=== PATIENT | male | born 1960 | race Two or more races ===

== ENCOUNTER → 2020-01-08 | Outpatient (CLI) | payer BC ==
[~2020-01-08] MED LIST: IBUP200C8 PO; MULT-658 PO; PRED5DRO20 EACHEYE
[2020-01-08 16:42] LABS: BASOPHILS # (AUTO) 0.01 x10^3/uL (0-0.1); BASOPHILS % (AUTO) 0 % (0-1); EOSINOPHILS # (AUTO) 0.05 x10^3/uL (0-0.4); EOSINOPHILS % (AUTO) 1 % (1-7); LYMPHOCYTES # (AUTO) 1.02 x10^3/uL (1-3.4); LYMPHOCYTES % (AUTO) 15 % (22-44); MD NO; MEAN CORPUSCULAR HEMOGLOBIN 30.1 pg (27.5-34.5); MEAN CORPUSCULAR HGB CONC 33.9 g/dL (33.2-36.2); MEAN CORPUSCULAR VOLUME 88.9 fL (81-97); MEAN PLATELET VOLUME 7.9 fL (7.4-10.4); MONOCYTES # (AUTO) 0.43 x10^3/uL (0.2-0.8); MONOCYTES % (AUTO) 7 % (2-9); NEUTROPHILS % (AUTO) 77 % (42-75); PLATELET COUNT 343 x10^3/uL (130-400); RED BLOOD COUNT 5.12 x10^6/uL (4.38-5.82); RED CELL DISTRIBUTION WIDTH 13.4 % (9.4-14.8)
[2020-01-08 16:47] LABS: ALANINE AMINOTRANSFERASE 21 U/L (12-78); ALBUMIN 4.1 g/dL (3.4-5.0); ANION GAP 5 mmol/L (5-15); CALCIUM 9.3 mg/dL (8.5-10.1); CHLORIDE 107 mmol/L (98-107); CREATININE 0.81 mg/dL (0.7-1.3); INTERNATIONAL NORMALIZED RATIO 0.9 (0.93-1.1); PROTHROMBIN TIME 9.5 Seconds (9.6-11.5)
[2020-01-08 16:50] LABS: ALKALINE PHOSPHATASE 92 U/L (45-117); BILIRUBIN,TOTAL 0.6 mg/dL (0.2-1.0); TOTAL PROTEIN 7.9 g/dL (6.4-8.2)
== END | disposition home or self-care (01) ==
LOC: STAR 15:42
PROVIDERS: ATTEND Orthopaedic Surgery
DX: Z01.818 Encounter for other preprocedural examination (principal); T84.84XA Pain due to internal orthopedic prosthetic devices, implants and grafts, initial encounter; Y83.8 Other surgical procedures as the cause of abnormal reaction of the patient, or of later complication, without mention of misadventure at the time of the procedure; Y92.89 Other specified places as the place of occurrence of the external cause; Z96.641 Presence of right artificial hip joint
CPT/HCPCS: 36415; 80053; 83036; 85025; 85610; 85730; 87081; 93005

== ENCOUNTER 2020-01-14 09:52 | Inpatient (IN) | payer BC ==
[~2020-01-14] VITALS: Ht 175.3 cm; Wt 83.2 kg
[~2020-01-14 09:52] MED LIST changes: +EPINEPHRINE 1 MG/ML, 1ML ONE; +KETOROLAC 60 MG/2 ML ONE; +ROPIvacaine/PF 0.5%, 20 ML ONE; +ROPIvacaine/PF 0.5%, 30 ML ONE; +SODIUM CHLORIDE 0.9% 50 ML ONE; +TRANEXAMIC ACID 100 MG/ML, 10ML ONE; +VANCOMYCIN 1,000 MG ONE
[2020-01-14] MEDS ORDERED: LACTATED RINGERS 1,000 ML IV SCH (10:28)
[2020-01-14 10:30] VITALS: BP 123/83
[2020-01-14] MEDS ORDERED: SENNA/DOCUSATE TABLET PO PRN (10:30)
[2020-01-14] MEDS ORDERED: BISACODYL 10 MG SUPP PR PRN (10:30)
[2020-01-14] MEDS ORDERED: CHLORHEXIDINE 15 ML UDC MM ONE (10:30)
[2020-01-14] MEDS ORDERED: MAGNESIUM HYDROXIDE 8%, 30ML UDC PO PRN (10:30)
[2020-01-14] MEDS ORDERED: DIPHENHYDRAMINE 25 MG CAPSULE PO PRN (10:30)
[2020-01-14] MEDS ORDERED: ACETAMINOPHEN 500 MG TABLET PO ONE (10:30)
[2020-01-14] MEDS ORDERED: ONDANSETRON 4 MG TABLET PO PRN (10:30)
[2020-01-14] MEDS ORDERED: GABAPENTIN 300 MG CAPSULE PO ONE (10:30)
[2020-01-14] MEDS ORDERED: ACETAMINOPHEN 650 MG/20.3 ML UDC PO PRN (10:30)
[2020-01-14] MEDS ORDERED: ONDANSETRON 2MG/ML, 2ML IV PRN (10:30)
[2020-01-14] MEDS ORDERED: ZOLPIDEM 5MG TABLET PO PRN (10:30)
[2020-01-14] MEDS ORDERED: HYDROcodone/APAP 5/325 TABLET PO PRN (10:30)
[2020-01-14] MEDS ORDERED: VANCOMYCIN PER PHARMACY MC PRN (11:00)
[2020-01-14] MEDS ORDERED: FENTANYL PF 250 MCG/5ML ONE (11:14)
[2020-01-14] MEDS ORDERED: MIDAZOLAM 1 MG/ML, 2ML ONE (11:14)
[2020-01-14] MEDS ORDERED: VANCOMYCIN 1,600 MG in SODIUM CHLORIDE 0.9% 250 ML IV SCH (11:30)
[2020-01-14] MEDS ORDERED: VANCOMYCIN 1,600 MG in SODIUM CHLORIDE 0.9% 250 ML IV ONE (11:30)
[2020-01-14] MEDS ORDERED: DEXAMETHASONE 4 MG/ML, 1ML ONE (11:55)
[2020-01-14] MEDS ORDERED: SUCCINYLCHOLINE 20 MG/ML, 10ML ONE (11:55)
[2020-01-14] MEDS ORDERED: PROPOFOL 10 MG/ML, 20ML ONE (11:55)
[2020-01-14] MEDS ORDERED: CEFAZOLIN 1,000 MG ONE (11:55)
[2020-01-14] MEDS ORDERED: ONDANSETRON 2MG/ML, 2ML ONE (11:55)
[2020-01-14] MEDS ORDERED: FENTANYL PF 100 MCG/2ML ONE (13:42)
[2020-01-14] MEDS ORDERED: OXYcodone 5 MG/5 ML ORAL.SOL UDC ONE (13:49)
[2020-01-14] MEDS ORDERED: MEPERIDINE/PF 25MG/ML,1ML ONE (13:49)
[2020-01-14] MEDS: FENTANYL PF 100 MCG/2ML IV PRN ×2 (13:50→14:18)
[2020-01-14] MEDS ORDERED: DIAZEPAM 5 MG/ML, 2ML IVPush PRN (14:00)
[2020-01-14] MEDS ORDERED: HYDROmorphone 2 MG/ML, 1ML IVPush PRN (14:00)
[2020-01-14] MEDS ORDERED: MEPERIDINE/PF 25MG/0.5ML IVPush PRN (14:00)
[2020-01-14] MEDS ORDERED: PROMETHAZINE 25 MG/ML, 1ML IV PRN (14:00)
[2020-01-14] MEDS ORDERED: ALBUTEROL SULFATE 2.5 MG/3 ML NPPB PRN (14:00)
[2020-01-14] MEDS ORDERED: LABETALOL 5MG/ML, 20ML IV PRN (14:00)
[2020-01-14] MEDS ORDERED: hydrALAzine 20 MG/ML, 1ML IV PRN (14:00)
[2020-01-14] MEDS ORDERED: OXYcodone 5 MG/5 ML ORAL.SOL UDC PO PRN (14:00)
[2020-01-14] MEDS: NS + 20MEQ KCL 1,000 ML IV SCH (16:43)
[2020-01-14] MEDS ORDERED: ACETAMINOPHEN 325 MG TABLET ONE (16:59)
[2020-01-14] MEDS ORDERED: PHARMACOKINETIC MONITORING MC PRN (17:00)
[2020-01-14] MEDS ORDERED: PHARMACOKINETIC CONSULTATION MC ONE (17:00)
[2020-01-14] MEDS ORDERED: ACETAMINOPHEN 325 MG TABLET PO PRN (17:00)
[2020-01-14] MEDS: ASPIRIN 81 MG TABLET EC PO SCH (17:01)
[2020-01-14] MEDS: OXYcodone IR 5MG TABLET PO PRN (18:10)
[2020-01-14] MEDS: CEFAZOLIN PMX 2GM/50ML 50 ML IVPB SCH (19:56)
[2020-01-14 20:12] VITALS: BP 122/76
[2020-01-14] MEDS: DOCUSATE 100 MG CAPSULE PO SCH (21:00)
[2020-01-14 23:43] VITALS: BP 129/82
[2020-01-15 03:38] VITALS: BP 131/60
[2020-01-15] MEDS: CEFAZOLIN PMX 2GM/50ML 50 ML IVPB SCH (04:27)
[2020-01-15] MEDS: OXYcodone IR 5MG TABLET PO PRN ×2 (04:28→08:47)
[2020-01-15] MEDS: NS + 20MEQ KCL 1,000 ML IV SCH (04:48)
[2020-01-15] MEDS: ASPIRIN 81 MG TABLET EC PO SCH (05:54)
[2020-01-15] MEDS ORDERED: DEXAMETHASONE 4 MG/ML, 1ML IVPush SCH (06:00)
[2020-01-15] MEDS ORDERED: VANCOMYCIN 1,600 MG in SODIUM CHLORIDE 0.9% 250 ML IV ONE (06:00)
[2020-01-15 08:15] VITALS: BP 124/78
[2020-01-15] MEDS: DOCUSATE 100 MG CAPSULE PO SCH (08:47)
[2020-01-15] MEDS ORDERED: TRAM50TA2 PO (08:51)
[2020-01-15] MEDS ORDERED: OXYC5TAB3 PO (08:51)
[2020-01-15] MEDS ORDERED: MELO7.5T31 PO (08:52)
[2020-01-15] MEDS ORDERED: ASPI81TA45 PO (08:53)
[2020-01-15] MEDS ORDERED: predniSOLONE OPHTH. 1%,1ML EACHEYE SCH (09:00)
[2020-01-15 10:37] VITALS: BP 114/75
== END 2020-01-15 11:10 | disposition home or self-care (01) | DRG 482 ==
LOC: ORIP 09:52 → 4NE 15:20 → DCLOUNGE 01-15 11:05
PROVIDERS: ADMIT Orthopaedic Surgery; ATTEND Orthopaedic Surgery
PROC: 0SW909Z Revision of Liner in Right Hip Joint, Open Approach (ICD-10-PCS; principal; 2020-01-14 12:15)
DX: T84.030A Mechanical loosening of internal right hip prosthetic joint, initial encounter (principal); X58.XXXA Exposure to other specified factors, initial encounter
CPT/HCPCS: 36415; 72170; 85014; 85018; 86850; 86900; 87635; C1713; G0378; J0171; J0690; J1100; J1885; J2175; J2250; J2405; J2704; J2795; J3010; J3370; J3480; C1776; J0330; J7050; J7120

== ENCOUNTER 2020-04-03 17:43 | Emergency (ER) | payer BC ==
[~2020-04-03] VITALS: Ht 175.3 cm; Wt 85.3 kg
[~2020-04-03 17:43] MED LIST changes: +ASPI81TA45 PO; -EPINEPHRINE 1 MG/ML, 1ML ONE; -KETOROLAC 60 MG/2 ML ONE; +MELO7.5T31 PO; +OXYC5TAB3 PO; -ROPIvacaine/PF 0.5%, 20 ML ONE; -ROPIvacaine/PF 0.5%, 30 ML ONE; -SODIUM CHLORIDE 0.9% 50 ML ONE; +TRAM50TA2 PO; -TRANEXAMIC ACID 100 MG/ML, 10ML ONE; -VANCOMYCIN 1,000 MG ONE
--- NOTE | 2020-04-03 18:10 | NUR ---
THIS IS A 59 YO MALE COMING IN FOR DIFFUSE ABD CRAMPING AND PAIN STARTING WORSENING TODAY. +N/V, DENIES DIARRHEA OR CONSTIPAION, LAST BM TODAY. ABD TENDER TO PALPATION. HX INTESTINAL VOLVULUS AND HERNIA REPAIR LAST YEAR, STATES "IT FEELS ALMOST THE SAME". A&OX4, VSS, NADN AT THIS TIME. CALL LIGHT IN REACH, ERP IN ROOM FOR EVAL
[2020-04-03] MEDS ORDERED: SODIUM CHLORIDE FLUSH 10ML SYR IVF ONE (18:30)
[2020-04-03 18:58] LABS: BASOPHILS # (AUTO) 0.03 x10^3/uL (0-0.1); BASOPHILS % (AUTO) 0 % (0-1); EOSINOPHILS % (AUTO) 0 % (1-7); LYMPHOCYTES # (AUTO) 0.73 x10^3/uL (1-3.4); LYMPHOCYTES % (AUTO) 6 % (22-44); MD NO; MEAN CORPUSCULAR HEMOGLOBIN 29.3 pg (27.5-34.5); MEAN CORPUSCULAR HGB CONC 33.5 g/dL (33.2-36.2); MEAN PLATELET VOLUME 7.6 fL (7.4-10.4); MONOCYTES % (AUTO) 4 % (2-9); NEUTROPHILS # (AUTO) 11.67 x10^3/uL (1.8-6.8); NEUTROPHILS % (AUTO) 90 % (42-75); PLATELET COUNT 361 x10^3/uL (130-400); RED BLOOD COUNT 4.99 x10^6/uL (4.38-5.82); RED CELL DISTRIBUTION WIDTH 13.3 % (9.4-14.8)
[2020-04-03 19:15] LABS: ALANINE AMINOTRANSFERASE 18 U/L (12-78); ALBUMIN 3.2 g/dL (3.4-5.0); ANION GAP 6 mmol/L (5-15); CALCIUM 9.6 mg/dL (8.5-10.1); CHLORIDE 105 mmol/L (98-107)
--- NOTE | 2020-04-03 19:16 | NUR ---
UA COLLECTED AND WALKED TO LAB
[2020-04-03 19:17] LABS: ALKALINE PHOSPHATASE 78 U/L (45-117); BILIRUBIN,TOTAL 0.5 mg/dL (0.2-1.0); CREATININE 0.78 mg/dL (0.7-1.3); TOTAL PROTEIN 6.9 g/dL (6.4-8.2)
--- NOTE | 2020-04-03 19:17 | NUR ---
CT PENDING LAB/CREATINE.
[2020-04-03 19:28] LABS: MICROSCOPIC NOT IND
--- NOTE | 2020-04-03 19:51 | NUR ---
PATIENT TO CT
[2020-04-03] MEDS ORDERED: OMNIPAQUE 350 MG/ML, 100ML BOTTLE ONE (19:57)
[2020-04-03 20:30] VITALS: BP 118/78
--- NOTE | 2020-04-03 20:30 | NUR ---
provider to bedside-to d/c shortly
--- NOTE | 2020-04-03 20:58 | NUR ---
This RN back from lunch, patient had left without discharge paperwork and unknown if PIV was still in. This RN contacted patient over the phone, patient states his girlfriend that was in the room took it out. 20G catheter with pigtail found in biohazard container in room. Patient given instructions for follow up care over the phone and instructed to come back or to urgent care if symptoms worsen or are not getting better.
== END 2020-04-03 21:03 | disposition home or self-care (01) ==
LOC: ED 18:25
DX: R10.84 Generalized abdominal pain (principal); Z87.891 Personal history of nicotine dependence
CPT/HCPCS: 36415; 74177; 80053; 81003; 83690; 85025; 99285; Q9967